=== PATIENT | female | born 1990 | race Caucasian/White ===

== ENCOUNTER 2016-06-30 21:04 | Emergency (ER) | payer OTHER ==
[~2016-06-30] VITALS: Ht 152.4 cm; Wt 89.8 kg
[~2016-06-30 21:04] MED LIST: CIPR500T4 PO; FLAG500T PO; LORTA5 PO
[2016-06-30 21:29] VITALS: BP 128/86; PULSE 95; RESP 16; TEMP 98.8; O2SAT 97
[2016-07-01 02:10] VITALS: BP 128/86; PULSE 95; RESP 20; TEMP 98.8; O2SAT 97
[2016-07-01] MEDS ORDERED: LEVS0.124 SL (02:10)
[2016-07-01] MEDS ORDERED: SODIUM CHLOR 0.9% 1000 ML INJ 1,000 ML IV SCH (02:11)
--- NOTE | 2016-07-01 02:11 | PD ---
HPI Chief Complaint: Abdominal Pain Time Seen by Provider: 02:06 Travel History International Travel<30 days: No Contact w/Intl Traveler<30days: No Traveled to known affect area: No History of Present Illness HPI The patient is a 25-year-old female with a history of diverticulitis who complains of the same symptoms, pain for the last 24 hours in the left lower quadrant. She denies any fever, vomiting or diarrhea but does have some slight nausea. Her pain as a 6/10. She purposely came in early because she wanted to get treatment for diverticulitis before it got as bad as it was in January. She has undergone lower endoscopy by Dr. Mendoza in March who found diverticula and put the patient on Levsin. PFS Past Medical History Endocrine: No Musculoskeletal: No Neurologic: No Psychiatric: No Past Surgical History Tonsillectomy: Yes Tympanostomy Tube: Yes Social History Alcohol Use: Yes (occ) Tobacco Use: No Substance Use: No Allergies-Medications (Allergen,Severity, Reaction): Coded Allergies: Nut Tree (Verified Allergy, Severe, Anaphylaxis, 07/01/16) Reported Meds & Prescriptions Reported Meds & Active Scripts Active Reported Levsin-SL (Hyoscyamine Sulfate) 0.125 Mg Subl 0.125 Mg SL Q6H Review of Systems Except as stated in HPI: all other systems reviewed are Neg Physical Exam Narrative GENERAL: The patient is alert, oriented 3 and slight apparent distress with her abdominal discomfort. Her vital signs are normal. SKIN: Warm and dry. HEAD: Atraumatic. Normocephalic. EYES: Pupils equal and round. No scleral icterus. No injection or drainage. ENT: No nasal bleeding or discharge. Mucous membranes pink and moist. NECK: Trachea midline. No JVD. CARDIOVASCULAR: Regular rate and rhythm. No murmur appreciated. RESPIRATORY: No accessory muscle use. Clear to auscultation. Breath sounds equal bilaterally. GASTROINTESTINAL: Abdomen soft, with tenderness to direct palpation in the left lower quadrant, nondistended. Hepatic and splenic margins not palpable. No guarding or rebound is present. MUSCULOSKELETAL: No obvious deformities. No clubbing. No cyanosis. No edema. NEUROLOGICAL: Awake and alert. No obvious cranial nerve deficits. Motor grossly within normal limits. Normal speech. PSYCHIATRIC: Appropriate mood and affect; insight and judgment normal. Data Data Last Documented VS Vital Signs Date Time Temp Pulse Resp B/P Pulse Ox O2 Delivery O2 Flow Rate FiO2 07/01/16 02:22 98.8 95 20 128/86 97 Room Air Orders Basic Metabolic Panel (Bmp) (07/01/16 02:11) Beta Hcg (Quant/Titer) (07/01/16 02:11) Complete Blood Count With Diff (07/01/16 02:11) Urinalysis - C+S If Indicated (07/01/16 02:11) Iv Access Insert/Monitor (07/01/16 02:11) Ecg Monitoring (07/01/16 02:11) Oximetry (07/01/16 02:11) Morphine Inj (Morphine Inj) (07/01/16 02:15) Ondansetron Inj (Zofran Inj) (07/01/16 02:15) Sodium Chlor 0.9% 1000 Ml Inj (Ns 1000 M (07/01/16 02:11) Sodium Chloride 0.9% Flush (Ns Flush) (07/01/16 02:15) Metronidazole 500 Mg Inj (Flagyl 500 Mg (07/01/16 02:15) Levofloxacin 750 Mg Premix Inj (Levaquin (07/01/16 02:15) Urine Culture (07/01/16 02:30) Labs Laboratory Tests Test 07/01/16 07/01/16 02:15 02:30 White Blood Count 12.2 TH/MM3 Red Blood Count 4.96 MIL/MM3 Hemoglobin 14.5 GM/DL Hematocrit 43.5 % Mean Corpuscular Volume 87.6 FL Mean Corpuscular Hemoglobin 29.2 PG Mean Corpuscular Hemoglobin 33.3 % Concent Red Cell Distribution Width 12.9 % Platelet Count 298 TH/MM3 Mean Platelet Volume 9.2 FL Neutrophils (%) (Auto) 61.2 % Lymphocytes (%) (Auto) 28.4 % Monocytes (%) (Auto) 4.8 % Eosinophils (%) (Auto) 4.9 % Basophils (%) (Auto) 0.7 % Neutrophils # (Auto) 7.4 TH/MM3 Lymphocytes # (Auto) 3.5 TH/MM3 Monocytes # (Auto) 0.6 TH/MM3 Eosinophils # (Auto) 0.6 TH/MM3 Basophils # (Auto) 0.1 TH/MM3 CBC Comment DIFF FINAL Differential Comment Sodium Level 141 MEQ/L Potassium Level 3.8 MEQ/L Chloride Level 104 MEQ/L Carbon Dioxide Level 26.4 MEQ/L Anion Gap 11 MEQ/L Blood Urea Nitrogen 12 MG/DL Creatinine 0.87 MG/DL Estimat Glomerular Filtration 80 ML/MIN Rate Random Glucose 87 MG/DL Calcium Level 8.8 MG/DL Human Chorionic Gonadotropin, LESS THAN 1 Quant MIU/ML Urine Collection Type VOIDED Urine Color YELLOW Urine Turbidity CLEAR Urine pH 5.5 Urine Specific [place] 1.022 Urine Protein NEG mg/dL Urine Glucose (UA) NEG mg/dL Urine Ketones NEG mg/dL Urine Occult Blood NEG Urine Nitrite NEG Urine Bilirubin NEG Urine Leukocyte Esterase TRACE Urine WBC 9-14 /hpf Urine Squamous Epithelial 6-8 /hpf Cells Urine Bacteria RARE /hpf Microscopic Urinalysis Comment CULTURE INDICATED MDM Medical Decision Making Medical Screen Exam Complete: Yes Emergency Medical Condition: Yes Medical Record Reviewed: Yes Interpretation(s) The CBC shows a white count of 12,200 but is otherwise unremarkable. The basic metabolic profile shows a GFR of 80 but is otherwise normal. The beta-hCG is less than 1. The urinalysis shows trace leukocyte esterase, 9-14 white cells and rare bacteria and culture is indicated. Differential Diagnosis Acute diverticulitis, perforation of diverticulitis, intra-abdominal abscess, PIDunlikely, UTI Narrative Course The patient appears to have acute diverticulitis and a urinary tract infection. Plan: The patient will be given Cipro and Flagyl and follow up with her primary care physician. If worse, she is return to emergency department for reevaluation and possible CT scan. Diagnosis Primary Impression: Acute diverticulitis Additional Impression: Urinary tract infection Additional Instructions: As we discussed, do not drink alcohol with the Flagyl. Do not drink alcohol or drive on the Lortab 5. If worse, intubated due to return to the emergency department for reevaluation and CAT scan. As we discussed, perforation can occur with diverticulitis. Follow-up with Dr. Mendoza next week. Med/Other Pt SpecificInfo: Prescription(s) given Scripts Metronidazole (Flagyl)500 Mg [id number] Mg PO TID 10 Days Ref 0 Prov:Roni Shepard MD 07/01/16 Ciprofloxacin (Cipro)500 Mg [id number] Mg PO BID 10 Days Ref 0 Prov:Roni Shepard MD 07/01/16 Disposition: 01 DISCHARGE HOME Condition: Stable Roni Shepard MD Jul 01, 2016 02:11
[2016-07-01] MEDS ORDERED: SODIUM CHLORIDE 0.9% FLUSH 5 ML FLUSH IVF PRN (02:15)
[2016-07-01] MEDS ORDERED: MORPHINE SULFATE 4 MG/ML INJ IV PUSH ONE (02:15)
[2016-07-01] MEDS ORDERED: ONDANSETRON HCL 4 MG/2 ML VIAL IVP ONE (02:15)
[2016-07-01] MEDS ORDERED: metroNIDAZOLE 500 MG INJ 100 ML IV ONE (02:15)
[2016-07-01] MEDS ORDERED: LEVOFLOXACIN 750 MG PREMIX INJ 150 ML IV ONE (02:15)
[2016-07-01 02:22] VITALS: BP 128/86; PULSE 95; RESP 20; TEMP 98.8; O2SAT 97
[2016-07-01 02:56] LABS: BLOOD, URINE NEG (NEG); GLUCOSE,URINE NEG (NEG); KETONE, URINE NEG (NEG); NITRITE,URINE NEG (NEG); PH, URINE 5.5 (5.0-8.5)
[2016-07-01 02:59] LABS: AUTOMATED NEUTROPHIL # 7.4 TH/MM3 (1.8-7.7); BASOPHIL # 0.1 TH/MM3 (0-0.2); BASOPHIL % 0.7 % (0.0-2.0); EOSINOPHIL # 0.6 TH/MM3 (0-0.4); EOSINOPHIL % 4.9 % (0.0-4.0); HEMATOCRIT 43.5 % (35.0-46.0); HEMO FLAGS DIFF FINAL; LYMPH % 28.4 % (9.0-44.0); LYMPHOCYTE # 3.5 TH/MM3 (1.0-4.8); MEAN CELL VOLUME 87.6 FL (80.0-100.0); MEAN CORPUSCULAR HEMOGLOBIN 29.2 PG (27.0-34.0); MEAN CORPUSCULAR HGB CONC 33.3 % (32.0-36.0); MONO % 4.8 % (0.0-8.0); NEUT % 61.2 % (16.0-70.0); PLATELET COUNT 298 TH/MM3 (150-450); RED BLOOD COUNT 4.96 MIL/MM3 (4.00-5.30); RED CELL DISTRIBUTION WIDTH 12.9 % (11.6-17.2); WHITE BLOOD COUNT 12.2 TH/MM3 (4.0-11.0)
[2016-07-01 03:03] LABS: CHLORIDE 104 MEQ/L (98-107); POTASSIUM 3.8 MEQ/L (3.5-5.1); SODIUM (NA) 141 MEQ/L (136-145)
[2016-07-01 03:06] LABS: ANION GAP 11 MEQ/L (5-15); BICARBONATE 26.4 MEQ/L (21.0-32.0); BLOOD UREA NITROGEN 12 MG/DL (7-18)
[2016-07-01 03:09] LABS: METHOD OF COLLECTION VOIDED; URINE COLOR YELLOW (YELLW/STRAW)
[2016-07-01 03:10] LABS: GLOMERULAR FILTRATION RATE 80 ML/MIN (>89)
[2016-07-01 03:12] LABS: BACTERIA, URINE RARE /hpf; COMMENT (UR) CULTURE INDICATED; CULTURE IF INDICATED CULTURE INDICATED
[2016-07-01 03:14] LABS: BETA HCG QUANT LESS THAN 1 MIU/ML (0-5)
[2016-07-01] MEDS ORDERED: METR-1 PO (03:39)
[2016-07-01] MEDS ORDERED: CIPR-9 PO (03:39)
[2016-07-01] MEDS ORDERED: HYDR-3533 PO (03:42)
[2016-07-01] MEDS ORDERED: ZOFR8TAB PO (03:45)
[2016-07-01] MEDS ORDERED: ONDANSETRON HCL 4 MG/2 ML VIAL IV ONE (03:45)
[2016-07-01 04:30] VITALS: BP 112/56; TEMP 98.7
== END 2016-07-01 04:38 | disposition home or self-care (01) ==
LOC: PHED 21:04
DX: K57.92 Diverticulitis of intestine, part unspecified, without perforation or abscess without bleeding (principal); N39.0 Urinary tract infection, site not specified
CPT/HCPCS: 80048; 81001; 84702; 85025; 87086; 96365; 96368; 96375; 96376; 99284; J1956; J2270; J2405; J7030

== ENCOUNTER 2016-09-16 20:25 | Emergency (ER) | payer OTHER ==
[~2016-09-16] VITALS: Ht 165.1 cm; Wt 90.0 kg
[~2016-09-16 20:25] MED LIST changes: +CIPR-9 PO; -CIPR500T4 PO; -FLAG500T PO; +HYDR-3533 PO; +LEVS0.124 SL; -LORTA5 PO; +METR-1 PO; +ZOFR8TAB PO
[2016-09-16 20:27] VITALS: BP 134/88; PULSE 115; RESP 16; TEMP 98.6; O2SAT 98
--- NOTE | 2016-09-16 21:09 | PD ---
HPI Chief Complaint: Injury Time Seen by Provider: 21:02 Travel History International Travel<30 days: No Contact w/Intl Traveler<30days: No Traveled to known affect area: No History of Present Illness HPI 26-year-old white female presents to emergency Department with complaints of left foot pain. She states that prior to arrival she had dropped a 10 pound metal plate onto her right foot. The patient was wearing sneakers at the time. She states that the weight landed and weighs down onto her great toe. She states that she has had decreased sensation. Pain is moderate. No other injuries. She has not had a period in 4 months. She did a home pricey test yesterday which was negative. She has a history of irregular periods and possible PCOS. PFSH Past Medical History Diminished Hearing: No Endocrine: No Gastrointestinal Disorders: Yes (divirticulitis) Musculoskeletal: No Neurologic: No Psychiatric: No Tetanus Vaccination: < 5 Years ?: Not LMP: IRRGULAR CYCLES Past Surgical History Narrative Surgical Left tympanoplasty Tonsillectomy: Yes Tympanostomy Tube: Yes Social History Alcohol Use: Yes (occ) Tobacco Use: No Substance Use: No Allergies-Medications (Allergen,Severity, Reaction): Coded Allergies: Nut Tree (Verified Allergy, Severe, Anaphylaxis, 07/01/16) Reported Meds & Prescriptions Reported Meds & Active Scripts Active Diclofenac Sodium DR (Diclofenac Sodium) 75 Mg Tabdr 75 Mg PO BID Zofran (Ondansetron HCl) 8 Mg Tab 8 Mg PO TID Lortab (Hydrocodone-Acetaminophen) 5-325 Mg Tab 1-2 Tab PO Q6H PRN Flagyl (Metronidazole) 500 Mg Tab 500 Mg PO TID 10 Days Cipro (Ciprofloxacin HCl) 500 Mg Tab 500 Mg PO BID 10 Days Reported Levsin-SL (Hyoscyamine Sulfate) 0.125 Mg Subl 0.125 Mg SL Q6H Review of Systems Except as stated in HPI: all other systems reviewed are Neg Physical Exam Narrative GENERAL: This is a well-nourished, well-developed patient, in no apparent distress. SKIN: No rashes, ecchymoses or lesions. Warm and dry. HEAD: Atraumatic. Normocephalic. EYES: PERRL, EOMI, no discharge or injection. No scleral icterus. EARS: Clear NOSE: Nasal turbinates appear normal. THROAT: Mucosa pink and moist. Airway patent. NECK: Trachea midline. supple, moves head freely. LUNGS: Clear to auscultation. CV: Regular in rhythm. ABDOMEN: Soft nontender. EXT: No clubbing cyanosis. Examination of the left foot reveals tenderness to the distal first metatarsal and proximal great toe. There is a soft tissue contusion with hematoma. There is slight skin breakdown but no laceration. Patient has decrease fine sensation but has intact gross sensation. Patient has limited extension of the great toe due to pain. There is no injury to the second, third, fourth, fifth toe. No pain in the proximal forefoot, heel, Achilles or ankle. She has a good distal pulse. Data Data Last Documented VS Vital Signs Date Time Temp Pulse Resp B/P Pulse Ox O2 Delivery O2 Flow Rate FiO2 09/16/16 20:27 98.6 115 16 134/88 98 Orders Foot, Complete ([id number]) (09/16/16 20:28) Ed Urine Pregnancytest Poc (09/16/16 21:09) Ice/Cold Pack (09/16/16 21:09) Crutches (09/16/16 21:09) Acetamin-Hydrocod 325-5 Mg ([place] 5-325 (09/16/16 21:15) MDM Medical Decision Making Medical Screen Exam Complete: Yes Emergency Medical Condition: Yes Medical Record Reviewed: Yes Interpretation(s) Left foot: Negative for fracture. There is a slight irregularity of the distal phalanx of the great toe. This is not a fracture. There is no associated clinical findings. Differential Diagnosis MDM: High Differential diagnoses: Fracture, sprain, strain, dislocation, contusion, neurovascular injury Narrative Course Patient's given ice pack, Lortab 5 a grams by mouth. X-ray of the right foot is negative for acute fracture. Patient given crutches. Diagnosis Primary Impression: Contusion of left foot including toes Qualified Code: S90.32XA - Contusion of left foot including toes, initial encounter Patient Instructions: General Instructions Departure Forms: Tests/Procedures, Work Release Special Instructions: No work 2 days. Additional Instructions: Rest. Elevation. Ice packs for the next 3 days. Asad wrap and crutches. No weight-bearing and then progress to weight-bearing as tolerated. Medications as directed Follow-up with an orthopedist or your doctor in one week. Return to the ER if any problems Med/Other Pt SpecificInfo: Prescription(s) given Scripts Diclofenac Sodium DR 75 Mg Tabdr75 Mg PO BID #20 TAB Prov:Rafi Hoffman MD 09/16/16 Disposition: 01 DISCHARGE HOME Condition: Stable Abdiel Acuña Sep 16, 2016 21:09
[2016-09-16] MEDS ORDERED: ACETAMINOPHEN/HYDROcodone 325 MG/5 MG TAB PO ONE (21:15)
--- NOTE | 2016-09-16 21:31 | RADRPT ---
EXAM DATE/TIME: 09/16/2016 21:25 [facility] COMPARISON: No previous studies available for comparison. INDICATIONS : Left foot pain and swelling after dropping a 10 pound weight on her big toe tonight. MEDICAL HISTORY : None. SURGICAL HISTORY : None. ENCOUNTER: Initial ACUITY: 1 day PAIN SCORE: 6/10 LOCATION: Right great toe. FINDINGS: Three view examination of the left foot demonstrates soft tissue swelling with questionable nondispla jackeline fracture distal phalanx great density on lateral view. The tarsal bones appear intact. The int erphalangeal and metatarsophalangeal joints are intact. The calcaneus is intact. Bony mineralizatio n is normal. CONCLUSION: Soft tissue swelling and questionable nondisplaced fracture distal phalanx great. Lloyd Cruz MD on September 16, 2016 at 21:28 Board Certified Radiologist. This report was verified electronically.
[2016-09-16] MEDS ORDERED: DICL75TA PO (21:33)
== END 2016-09-16 22:10 | disposition home or self-care (01) ==
LOC: NEPK 20:25
DX: S90.32XA Contusion of left foot, initial encounter (principal); Z87.19 Personal history of other diseases of the digestive system; W20.8XXA Other cause of strike by thrown, projected or falling object, initial encounter
CPT/HCPCS: 73630; 99283; E0113

== ENCOUNTER 2017-01-21 20:18 | Emergency (ER) | payer OTHER ==
[~2017-01-21] VITALS: Ht 152.4 cm; Wt 90.5 kg
[~2017-01-21 20:18] MED LIST changes: +DICL75TA PO
[2017-01-21 20:20] VITALS: BP 143/90; PULSE 126; RESP 18; TEMP 98.7; O2SAT 99
[2017-01-21] MEDS ORDERED: EPINEPHrine HCL (1:1000) 1 MG/ML VIAL IM ONE (20:30)
[2017-01-21] MEDS ORDERED: methylPREDNISolone SOD SUCC 125 MG/2 ML VIAL IV PUSH ONE (20:30)
[2017-01-21] MEDS ORDERED: diphenhydrAMINE HCL 50 MG/ML VIAL IVP ONE (20:30)
--- NOTE | 2017-01-21 21:02 | PD ---
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 States she did not realized it had cashew in it and her epipen was in recall so did not use it. Had an episode of vomiting prior to arrival. Denies any fever, chest pain, sob , abdominal pain, focal weakness or numbness. Pt states she just found out she was and LMP was 12/15/16, she is [id number] by LMP. PFSH Past Medical History Diminished Hearing: No Endocrine: No Gastrointestinal Disorders: Yes (divirticulitis) Musculoskeletal: No Neurologic: No Psychiatric: No Past Surgical History Tonsillectomy: Yes Tympanostomy Tube: Yes Social History Alcohol Use: Yes (occ) Tobacco Use: No Substance Use: No Allergies-Medications (Allergen,Severity, Reaction): Coded Allergies: tree nut (Unverified Allergy, Severe, Anaphylaxis, 01/21/17) Reported Meds & Prescriptions Reported Meds & Active Scripts Active Diclofenac Sodium DR (Diclofenac Sodium) 75 Mg Tabdr 75 Mg PO BID Zofran (Ondansetron HCl) 8 Mg Tab 8 Mg PO TID Lortab (Hydrocodone-Acetaminophen) 5-325 Mg Tab 1-2 Tab PO Q6H PRN Flagyl (Metronidazole) 500 Mg Tab 500 Mg PO TID 10 Days Cipro (Ciprofloxacin HCl) 500 Mg Tab 500 Mg PO BID 10 Days Reported Levsin-SL (Hyoscyamine Sulfate) 0.125 Mg Subl 0.125 Mg SL Q6H Review of Systems Except as stated in HPI: all other systems reviewed are Neg Physical Exam Narrative GENERAL: 26yo F in moderate distress. SKIN: Focused skin assessment warm/dry. HEAD: Atraumatic. Normocephalic. EYES: Pupils equal and round. No scleral icterus. No injection or drainage. ENT: Uvula midline. No uvula swelling. No lip swelling. NECK: Trachea midline. No JVD. CARDIOVASCULAR: Regular rate and rhythm. No murmur appreciated. RESPIRATORY: No accessory muscle use. Clear to auscultation. Breath sounds equal bilaterally. GASTROINTESTINAL: Abdomen soft, non-tender, nondistended. No rebound tenderness or guarding. MUSCULOSKELETAL: No obvious deformities. No clubbing. No cyanosis. No edema. NEUROLOGICAL: Awake and alert. No obvious cranial nerve deficits. Motor grossly within normal limits. Normal speech. PSYCHIATRIC: Appropriate mood and affect; insight and judgment normal. Data Data Last Documented VS Vital Signs Date Time Temp Pulse Resp B/P (MAP) Pulse Ox O2 Delivery O2 Flow Rate FiO2 01/21/17 23:28 105 14 110/66 (81) 99 Room Air 01/21/17 20:20 98.7 Orders Orders Ecg Monitoring (01/21/17 20:30) Iv Access Insert/Monitor (01/21/17 20:30) Oximetry (01/21/17 20:30) Diphenhydramine Inj (Benadryl Inj) (01/21/17 20:30) Methylprednisolone So Succ Inj (Solumedr (01/21/17 20:30) Epinephrine (1:1000) Inj (Adrenalin (1:1 (01/21/17 20:30) Sodium Chlor 0.9% 1000 Ml Inj (Ns 1000 M (01/21/17 21:15) Ed Urine Pregnancytest Poc (01/21/17 21:19) Urinalysis - C+S If Indicated (01/21/17 21:19) Labs Laboratory Tests Test 01/21/17 21:26 Urine Color COLORLESS Urine Turbidity CLEAR Urine pH 6.5 Urine Specific [place] 1.005 Urine Protein NEG mg/dL Urine Glucose (UA) NEG mg/dL Urine Ketones NEG mg/dL Urine Occult Blood NEG Urine Nitrite NEG Urine Bilirubin NEG Urine Urobilinogen LESS THAN 2.0 MG/DL Urine Leukocyte Esterase NEG Urine RBC LESS THAN 1 /hpf Urine WBC LESS THAN 1 /hpf Urine Squamous Epithelial Cells 1 /hpf Urine Bacteria RARE /hpf Microscopic Urinalysis Comment CULT NOT INDICATED MDM Medical Decision Making Medical Screen Exam Complete: Yes Emergency Medical Condition: Yes Differential Diagnosis Anaphylaxis vs. 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 I discussed risk and benefit of epinephrine which is a category C medication and decided to take it. Pt also given diphenhydramine 50mg IV. We will hold off on the methylprednisolone for now. Pt has been observed in the ED for over 3 hours and states symptoms had completely resolved. Denies any sob. Lungs are clear. Lip and throat not swollen. UA showed rare bacteria. Although culture is not indicated, pt is and if there is bacteruria, will still treat. Return precautions given. Diagnosis Primary Impression: Anaphylaxis Qualified Codes: T78.2XXA - Anaphylactic shock, unspecified, initial encounter Patient Instructions: General Instructions Departure Forms: Tests/Procedures Additional Instructions: Please follow up with your primary care physician in 1-2 days. Please follow up with OBGYN as outpatient. Med/Other Pt SpecificInfo: Prescription(s) given Scripts Nitrofurantoin Monohydrate Macrocrystals (Macrobid) 100 Mg Cap 100 MG PO BID for Infection for 5 Days, #10 CAP 0 Refills Prov: Debi Magaña DO 01/21/17 Diphenhydramine (Diphenhydramine) 25 Mg Cap 25 MG PO Q6H Y for ALLERGIES for 3 Days, #12 CAP 0 Refills Prov: Debi Magaña DO 01/21/17 Epinephrine Inj (Epipen 2-Wiliam Inj) 0.3 Mg/0.3 Ml Pfpen 0.3 MG SQ ONCE Y for ALLERGIC REACTION, #1 PACK 0 Refills Prov: Debi Magaña DO 01/21/17 Disposition: 01 DISCHARGE HOME Condition: Stable Debi Magaña DO Jan 21, 2017 21:02
[2017-01-21 21:14] VITALS: BP 117/65; PULSE 106; RESP 16; O2SAT 98
[2017-01-21] MEDS ORDERED: SODIUM CHLOR 0.9% 1000 ML INJ 1,000 ML IV ONE (21:15)
[2017-01-21 21:53] LABS: BACTERIA, URINE RARE /hpf; BLOOD, URINE NEG (NEG); COMMENT (UR) CULT NOT INDICATED; CULTURE IF INDICATED CULT NOT INDICATED; GLUCOSE,URINE NEG (NEG); KETONE, URINE NEG (NEG); NITRITE,URINE NEG (NEG); PH, URINE 6.5 (5.0-8.5); SQUAMOUS EPITHELIAL CELL URINE 1 /hpf (0-5); URINE COLOR COLORLESS (YELLW/STRAW)
[2017-01-21 23:28] VITALS: BP 110/66; PULSE 105; RESP 14; O2SAT 99
[2017-01-21] MEDS ORDERED: MACR100C2 PO (23:41)
[2017-01-21] MEDS ORDERED: EPIP0.3I SQ (23:41)
[2017-01-21] MEDS ORDERED: DIPH25CA PO (23:41)
== END 2017-01-21 23:53 | disposition home or self-care (01) ==
LOC: NEPC 20:18
DX: T78.2XXA Anaphylactic shock, unspecified, initial encounter (principal)
CPT/HCPCS: 81001; 84703; 96361; 96372; 96374; 99284; J0171; J1200; J7030

== ENCOUNTER 2017-02-24 18:16 | Emergency (ER) | payer OTHER ==
[~2017-02-24 18:16] MED LIST changes: +DIPH25CA PO; +EPIP0.3I SQ; +MACR100C2 PO
[2017-02-24 18:17] VITALS: BP 138/91; PULSE 101; RESP 14; TEMP 98.1; O2SAT 99
[2017-02-24 20:57] LABS: AUTOMATED NEUTROPHIL # 10.3 TH/MM3 (1.8-7.7); BASOPHIL % 0.4 % (0.0-2.0); BLOOD, URINE NEG (NEG); EOSINOPHIL # 0.2 TH/MM3 (0-0.4); EOSINOPHIL % 1.4 % (0.0-4.0); GLUCOSE,URINE NEG (NEG); HEMATOCRIT 39.6 % (35.0-46.0); HEMO FLAGS DIFF FINAL; KETONE, URINE 10 mg/dL (NEG); LYMPH % 18.4 % (9.0-44.0); LYMPHOCYTE # 2.5 TH/MM3 (1.0-4.8); MEAN CELL VOLUME 87.9 FL (80.0-100.0); MEAN CORPUSCULAR HEMOGLOBIN 29.9 PG (27.0-34.0); MONO % 4.7 % (0.0-8.0); NEUT % 75.1 % (16.0-70.0); NITRITE,URINE NEG (NEG); PLATELET COUNT 244 TH/MM3 (150-450); SQUAMOUS EPITHELIAL CELL URINE <1 /hpf (0-5); URINE COLOR LIGHT-YELLOW (YELLW/STRAW); WHITE BLOOD COUNT 13.7 TH/MM3 (4.0-11.0)
[2017-02-24 20:59] LABS: COMMENT (UR) CULT NOT INDICATED; CULTURE IF INDICATED CULT NOT INDICATED
[2017-02-24 21:09] LABS: BICARBONATE 24.3 MEQ/L (21.0-32.0); POTASSIUM 3.8 MEQ/L (3.5-5.1)
--- NOTE | 2017-02-24 22:26 | PD ---
HPI Chief Complaint: Dizziness Time Seen by Provider: 22:24 Travel History International Travel<30 days: No Contact w/Intl Traveler<30days: No Traveled to known affect area: No History of Present Illness HPI The patient is a 26 year old female who presents to the [facility] emergency department with a history of a bitemporal headache, nausea, lightheaded sensation that began while she was at work at the [employer] earlier today. The patient is a at 10 weeks gestation. She denies having any vomiting. She reports that she had a few weeks of nausea and vomiting related to , however this resolved about a week ago. She denies having any diarrhea. She reports that she last moved her bowels last night. She denies having any blood in her stool or black or tarry stools. She reports that she had a sensation of subjective fever prior to arrival. On review of systems, otherwise she denies having any cough, congestion, neck pain, chest pain, shortness of breath, abdominal pain, urinary symptoms, vaginal bleeding, vaginal discharge, or neurologic symptoms. LMP: 12/16/16, OBGYN Dr. Scanlon. [facility] Past Medical History Narrative Medical The patient's past medical history is significant for PCOS, Diverticulitis. Diminished Hearing: No Endocrine: No Gastrointestinal Disorders: Yes (divirticulitis) Musculoskeletal: No Neurologic: No Psychiatric: No ?: Past Surgical History Narrative Surgical The patient's past surgical history is significant for mastoid-tympanoplasty, tonsillectomy. Tonsillectomy: Yes Tympanostomy Tube: Yes Other Surgery: Yes Social History Alcohol Use: No Tobacco Use: No Substance Use: No Allergies-Medications (Allergen,Severity, Reaction): Coded Allergies: tree nut (Unverified Allergy, Severe, Anaphylaxis, 01/21/17) Reported Meds & Prescriptions Reported Meds & Active Scripts Active Macrobid (Nitrofurantoin Monoh/Nitrofur Macro) 100 Mg Cap 100 Mg PO BID 5 Days Diphenhydramine (Diphenhydramine HCl) 25 Mg Cap 25 Mg PO Q6H PRN 3 Days Epipen 2-Wiliam Inj (Epinephrine) 0.3 Mg/0.3 Ml Pfpen 0.3 Mg SQ ONCE PRN Diclofenac Sodium DR (Diclofenac Sodium) 75 Mg Tabdr 75 Mg PO BID Zofran (Ondansetron HCl) 8 Mg Tab 8 Mg PO TID Lortab (Hydrocodone-Acetaminophen) 5-325 Mg Tab 1-2 Tab PO Q6H PRN Flagyl (Metronidazole) 500 Mg Tab 500 Mg PO TID 10 Days Cipro (Ciprofloxacin HCl) 500 Mg Tab 500 Mg PO BID 10 Days Reported Levsin-SL (Hyoscyamine Sulfate) 0.125 Mg Subl 0.125 Mg SL Q6H Vitamen Review of Systems Except as stated in HPI: all other systems reviewed are Neg General / Constitutional: Positive: Fever Eyes: No: Visual changes HENT: Positive: Headaches, Lightheadedness, No: Neck Stiffness, Neck Pain Cardiovascular: No: Chest Pain or Discomfort Respiratory: No: Shortness of Breath Gastrointestinal: Positive: Nausea, No: Abdominal Pain Genitourinary: No: Dysuria Musculoskeletal: No: Pain Skin: No Rash Neurologic: Positive: Dizziness, No: Weakness, Focal Abnormalities, Change in Mentation, Slurred Speech, Sensory Disturbance Psychiatric: No: Depression Endocrine: No: Polydipsia Hematologic/Lymphatic: No: Easy Bruising Physical Exam Narrative General: The patient is a well-developed well-nourished female in no acute distress. Head and Neck exam: Head is normocephalic atraumatic. Eyes: EOMI, pupils are equal round and reactive to light. Nose: Midline septum with pink mucous membranes Mouth: Dentition unremarkable. Moist mucus membranes. Posterior oropharynx is not erythematous. No tonsillar hypertrophy. Uvula midline. Airway patent. Neck: No palpable lymphadenopathy. No nuchal rigidity. No thyromegaly. Cardiovascular: Regular rate and rhythm without murmurs, gallops, or rubs. Lungs: Clear to auscultation bilaterally. No wheezes, rhonchi, or rales. Abdomen: Soft, without tenderness to palpation in all 4 quadrants of the abdomen. No guarding, rebound, or rigidity. Normal bowel sounds are audible. No tenderness on palpation of McBurney's point. Extremities: No clubbing, cyanosis, or edema. 2+ pulses in all 4 extremities. No calf tenderness on palpation. Back: No spinous process tenderness to palpation. No costovertebral angle tenderness to palpation. Neurologic Exam: Grossly nonfocal. Skin Exam: No rash noted. Intact skin that is warm and dry. Data Data Last Documented VS Vital Signs Date Time Temp Pulse Resp B/P (MAP) Pulse Ox O2 Delivery O2 Flow Rate FiO2 02/25/17 00:15 84 19 107/59 (75) 100 19 123/74 (90) 96 20 116/69 (85) 02/24/17 18:17 98.1 99 Orders Orders Complete Blood Count With Diff (02/24/17 18:37) Basic Metabolic Panel (Bmp) (02/24/17 18:37) Beta Hcg (Quant/Titer) (02/24/17 18:37) Urinalysis - C+S If Indicated (02/24/17 18:37) Sodium Chlor 0.9% 1000 Ml Inj (Ns 1000 M (02/24/17 22:30) Orthostatic Vital Signs (02/24/17 22:29) Acetaminophen (Tylenol) (02/24/17 22:45) Labs Laboratory Tests Test 02/24/17 20:30 White Blood Count 13.7 TH/MM3 Red Blood Count 4.50 MIL/MM3 Hemoglobin 13.5 GM/DL Hematocrit 39.6 % Mean Corpuscular Volume 87.9 FL Mean Corpuscular Hemoglobin 29.9 PG Mean Corpuscular Hemoglobin Concent 34.0 % Red Cell Distribution Width 13.0 % Platelet Count 244 TH/MM3 Mean Platelet Volume 8.3 FL Neutrophils (%) (Auto) 75.1 % Lymphocytes (%) (Auto) 18.4 % Monocytes (%) (Auto) 4.7 % Eosinophils (%) (Auto) 1.4 % Basophils (%) (Auto) 0.4 % Neutrophils # (Auto) 10.3 TH/MM3 Lymphocytes # (Auto) 2.5 TH/MM3 Monocytes # (Auto) 0.6 TH/MM3 Eosinophils # (Auto) 0.2 TH/MM3 Basophils # (Auto) 0.0 TH/MM3 CBC Comment DIFF FINAL Differential Comment Urine Color LIGHT-YELLOW Urine Turbidity CLEAR Urine pH 6.0 Urine Specific [place] 1.007 Urine Protein NEG mg/dL Urine Glucose (UA) NEG mg/dL Urine Ketones 10 mg/dL Urine Occult Blood NEG Urine Nitrite NEG Urine Bilirubin NEG Urine Urobilinogen LESS THAN 2.0 MG/DL Urine Leukocyte Esterase NEG Urine RBC 1 /hpf Urine WBC LESS THAN 1 /hpf Urine Squamous Epithelial Cells <1 /hpf Microscopic Urinalysis Comment CULT NOT INDICATED Blood Urea Nitrogen 8 MG/DL Creatinine 0.67 MG/DL Random Glucose 78 MG/DL Calcium Level 9.0 MG/DL Sodium Level 136 MEQ/L Potassium Level 3.8 MEQ/L Chloride Level 103 MEQ/L Carbon Dioxide Level 24.3 MEQ/L Anion Gap 9 MEQ/L Estimat Glomerular Filtration Rate 107 ML/MIN Human Chorionic Gonadotropin, Quant 10178 MIU/ML MDM Medical Decision Making Medical Screen Exam Complete: Yes Emergency Medical Condition: Yes Medical Record Reviewed: Yes Differential Diagnosis Orthostasis, versus mild dehydration, versus viral syndrome Narrative Course During the course of the patients emergency department visit, the patients history, examination, and differential diagnosis were reviewed with the patient. The patient was placed on a deli department manager with oximetry and frequent blood pressure monitoring. The patient had IV access obtained and blood work sent for analysis. Orthostatic vital signs were negative. The patient was initially provided Tylenol for headache, normal saline 1 L IV fluid bolus. The patients laboratory studies were reviewed and remarkable for a white count of 13.7, hemoglobin 13.5, platelets 244 with 75.1 neutrophils, basic metabolic profile is within normal limits, beta hCG is 69,240, urinalysis shows 10 ketones suspicious for mild dehydration. The patient will be discharged home. The patient is instructed to take Tylenol as needed for discomfort aspirin on the package and increase her hydration by drinking at least 8 glasses of water daily, alternating with an electrolyte rich solution such as Gatorade or Powerade. The patient is resting comfortably and feels better, is alert and in no distress. The patients results and examination findings were discussed with the patient. The repeat examination is unremarkable and benign. The history, exam, diagnostic testing, and current condition do not suggest any significant pathology to warrant further testing, continued ED treatment, admission, or surgical evaluation at this point. The vital signs have been stable. The patient does not have uncontrollable pain, intractable vomiting, or other significant symptoms. The patient's condition is stable and appropriate for discharge. The patient will pursue further outpatient evaluation with a primary care physician or other designated or consulting physician as indicated in the discharge instructions. The patient expressed understanding and was agreeable with this plan. Diagnosis Primary Impression: Mild dehydration Referrals: Proofsheet Corrector 3 days Patient Instructions: Dehydration (ED), General Instructions Med/Other Pt SpecificInfo: No Change to Meds Disposition: 01 DISCHARGE HOME Condition: Stable Jaida Kauffman MD Feb 24, 2017 22:26
[2017-02-24] MEDS ORDERED: SODIUM CHLOR 0.9% 1000 ML INJ 1,000 ML IV ONE (22:30)
[2017-02-24] MEDS ORDERED: ACETAMINOPHEN 325 MG TAB PO ONE (22:45)
[2017-02-25 00:15] VITALS: BP_SYST 107; BP_SYST 116; BP_SYST 123; BP_DIAS 59; BP_DIAS 69; BP_DIAS 74; RESP 19; RESP 20
== END 2017-02-25 00:50 | disposition home or self-care (01) ==
LOC: NEPE 18:16
DX: O99.281 Endocrine, nutritional and metabolic diseases complicating pregnancy, first trimester (principal); E86.0 Dehydration; Z3A.10 10 weeks gestation of pregnancy
CPT/HCPCS: 80048; 81001; 84702; 85025; 99284; J7030

== ENCOUNTER 2017-03-11 12:25 | Emergency (ER) | payer OTHER ==
[~2017-03-11] VITALS: Ht 154.9 cm; Wt 93.6 kg
[2017-03-11 12:26] VITALS: BP 128/73; PULSE 124; RESP 20; TEMP 98.6; O2SAT 99
[2017-03-11 13:11] LABS: AUTOMATED NEUTROPHIL # 11.4 TH/MM3 (1.8-7.7); BASOPHIL # 0.1 TH/MM3 (0-0.2); BASOPHIL % 0.4 % (0.0-2.0); EOSINOPHIL # 0.1 TH/MM3 (0-0.4); EOSINOPHIL % 0.8 % (0.0-4.0); HEMATOCRIT 40.6 % (35.0-46.0); HEMO FLAGS DIFF FINAL; LYMPH % 5.1 % (9.0-44.0); LYMPHOCYTE # 0.6 TH/MM3 (1.0-4.8); MEAN CORPUSCULAR HEMOGLOBIN 30.2 PG (27.0-34.0); MEAN CORPUSCULAR HGB CONC 34.3 % (32.0-36.0); MONO % 4.2 % (0.0-8.0); NEUT % 89.5 % (16.0-70.0); PLATELET COUNT 230 TH/MM3 (150-450); RED BLOOD COUNT 4.61 MIL/MM3 (4.00-5.30); RED CELL DISTRIBUTION WIDTH 13.1 % (11.6-17.2); WHITE BLOOD COUNT 12.7 TH/MM3 (4.0-11.0)
[2017-03-11 13:20] LABS: ANION GAP 10 MEQ/L (5-15); AST (GOT) 21 U/L (15-37); BLOOD UREA NITROGEN 10 MG/DL (7-18); CHLORIDE 107 MEQ/L (98-107); GLOMERULAR FILTRATION RATE 111 ML/MIN (>89); POTASSIUM 3.8 MEQ/L (3.5-5.1); SODIUM (NA) 136 MEQ/L (136-145)
[2017-03-11 13:21] LABS: ALT (GPT) 38 U/L (10-53)
[2017-03-11 13:38] LABS: ALKALINE PHOSPHATASE 85 U/L (45-117); BETA HCG QUANT 35974 MIU/ML (0-5)
[2017-03-11] MEDS ORDERED: SE-NCHW CHEW (14:23)
--- NOTE | 2017-03-11 15:11 | PD ---
HPI Chief Complaint: GI Complaint Time Seen by Provider: 15:06 Travel History International Travel<30 days: No Contact w/Intl Traveler<30days: No Traveled to known affect area: No History of Present Illness HPI 26-year-old female patient who is 12 weeks , presents to the ER today because she has had a few days of nausea, vomiting, diarrhea multiple times a day, not able to keep anything down, it was said it by W[employer] LOOM FIXER for further evaluation. She denies any fevers or any other symptoms. She does not know any sick contacts. She denies any vaginal bleeding. Modifying Factors: None Associated Signs & Symptoms: Nausea, vomiting, diarrhea Risk Factors: PFSH Past Medical History Diminished Hearing: No Diverticulitis: Yes Endocrine: No Gastrointestinal Disorders: Yes Musculoskeletal: No Neurologic: No Psychiatric: No Tetanus Vaccination: > 5 Years Influenza Vaccination: Yes ?: LMP: 12/16/16 : 1 Past Surgical History Tonsillectomy: Yes Tympanostomy Tube: Yes Other Surgery: Yes Social History Alcohol Use: No Tobacco Use: No Substance Use: No Allergies-Medications (Allergen,Severity, Reaction): Coded Allergies: tree nut (Unverified Allergy, Severe, Anaphylaxis, 03/11/17) Reported Meds & Prescriptions Reported Meds & Active Scripts Active Epipen 2-Wiliam Inj (Epinephrine) 0.3 Mg/0.3 Ml Pfpen 0.3 Mg SQ ONCE PRN Reported Se- 19 29-1 mg Chew ( Vit W/ Ferrous Fumara Chew) 1 Chew 1 Tab CHEW DAILY Review of Systems Except as stated in HPI: all other systems reviewed are Neg Physical Exam Narrative GENERAL: Well-developed young female patient currently in mild distress. Awake and oriented 3. SKIN: Focused skin assessment warm/dry. HEAD: Atraumatic. Normocephalic. EYES: Pupils equal and round. No scleral icterus. No injection or drainage. ENT: No nasal bleeding or discharge. Mucous membranes pink and moist. NECK: Trachea midline. No JVD. CARDIOVASCULAR: Regular rate and rhythm. No murmur appreciated. RESPIRATORY: No accessory muscle use. Clear to auscultation. Breath sounds equal bilaterally. GASTROINTESTINAL: Abdomen soft, mild periumbilical tenderness without guarding or rebound, nondistended. Hepatic and splenic margins not palpable. MUSCULOSKELETAL: No obvious deformities. No clubbing. No cyanosis. No edema. NEUROLOGICAL: Awake and alert. No obvious cranial nerve deficits. Motor grossly within normal limits. Normal speech. PSYCHIATRIC: Appropriate mood and affect; insight and judgment normal. Data Data Last Documented VS Vital Signs Date Time Temp Pulse Resp B/P (MAP) Pulse Ox O2 Delivery O2 Flow Rate FiO2 03/11/17 14:25 20 03/11/17 12:26 98.6 124 128/73 (91) 99 Room Air Orders Orders Beta Hcg (Quant/Titer) (03/11/17 12:37) Complete Blood Count With Diff (03/11/17 12:37) Comprehensive Metabolic Panel (03/11/17 12:37) Lipase (03/11/17 12:37) Urinalysis - C+S If Indicated (03/11/17 12:37) Sodium Chlor 0.9% 1000 Ml Inj (Ns 1000 M (03/11/17 15:15) Metoclopramide Inj (Reglan Inj) (03/11/17 15:15) Us Pelvis (Ques Preg/Ectopic) (03/11/17 15:06) Labs Laboratory Tests Test 03/11/17 12:49 White Blood Count 12.7 TH/MM3 Red Blood Count 4.61 MIL/MM3 Hemoglobin 13.9 GM/DL Hematocrit 40.6 % Mean Corpuscular Volume 88.0 FL Mean Corpuscular Hemoglobin 30.2 PG Mean Corpuscular Hemoglobin Concent 34.3 % Red Cell Distribution Width 13.1 % Platelet Count 230 TH/MM3 Mean Platelet Volume 8.7 FL Neutrophils (%) (Auto) 89.5 % Lymphocytes (%) (Auto) 5.1 % Monocytes (%) (Auto) 4.2 % Eosinophils (%) (Auto) 0.8 % Basophils (%) (Auto) 0.4 % Neutrophils # (Auto) 11.4 TH/MM3 Lymphocytes # (Auto) 0.6 TH/MM3 Monocytes # (Auto) 0.5 TH/MM3 Eosinophils # (Auto) 0.1 TH/MM3 Basophils # (Auto) 0.1 TH/MM3 CBC Comment DIFF FINAL Differential Comment Blood Urea Nitrogen 10 MG/DL Creatinine 0.65 MG/DL Random Glucose 94 MG/DL Total Protein 7.8 GM/DL Albumin 3.7 GM/DL Calcium Level 8.9 MG/DL Alkaline Phosphatase 85 U/L Aspartate Amino Transf (AST/SGOT) 21 U/L Alanine Aminotransferase (ALT/SGPT) 38 U/L Total Bilirubin 1.0 MG/DL Sodium Level 136 MEQ/L Potassium Level 3.8 MEQ/L Chloride Level 107 MEQ/L Carbon Dioxide Level 19.0 MEQ/L Anion Gap 10 MEQ/L Estimat Glomerular Filtration Rate 111 ML/MIN Lipase 89 U/L Human Chorionic Gonadotropin, Quant 66863 MIU/ML MDM Medical Decision Making Medical Screen Exam Complete: Yes Emergency Medical Condition: Yes Medical Record Reviewed: Yes Interpretation(s) Laboratory Tests Test 03/11/17 12:49 White Blood Count 12.7 TH/MM3 (4.0-11.0) Neutrophils (%) (Auto) 89.5 % (16.0-70.0) Lymphocytes (%) (Auto) 5.1 % (9.0-44.0) Neutrophils # (Auto) 11.4 TH/MM3 (1.8-7.7) Lymphocytes # (Auto) 0.6 TH/MM3 (1.0-4.8) Carbon Dioxide Level 19.0 MEQ/L (21.0-32.0) Human Chorionic Gonadotropin, Quant 13391 MIU/ML (0-5) Last 24 hours Impressions Pelvis Ultrasound 03/11/17 1506 Signed Impressions: Service Date/Time: Saturday, March 11, 2017 15:31 - CONCLUSION: No suspicious findings Silvino Balbuena MD Differential Diagnosis Nausea, vomiting, diarrhea: Gastroenteritis versus gastritis versus dehydration versus metabolic issues versus hyperemesis gravidarum Narrative Course Abdomen is fairly benign and not suspecting an acute intra-abdominal process. Symptoms are indicative of gastroenteritis. Ultrasound of the shows 12 week IUP with good heart tones. Lab work did not indicate significant metabolic issues. Physician Communication Physician Communication Case is signed out to Dr. Magaña pending UA. Diagnosis Primary Impression: Gastroenteritis Condition: Stable Sumi Turner MD Mar 11, 2017 15:11
[2017-03-11] MEDS ORDERED: METOCLOPRAMIDE HCL 10 MG/2 ML VIAL IV PUSH ONE (15:15)
[2017-03-11] MEDS ORDERED: SODIUM CHLOR 0.9% 1000 ML INJ 1,000 ML IV ONE (15:15)
--- NOTE | 2017-03-11 16:13 | RADRPT ---
EXAM DATE/TIME: 03/11/2017 15:31 [place] COMPARISON: No previous studies available for comparison. INDICATIONS : Abdominal pain. LAB(S): Beta-hC MEDICAL HISTORY : Diverticulitis. . SURGICAL HISTORY : Tonsillectomy. ENCOUNTER: Initial ACUITY: 1 day PAIN SCORE: 6/10 LOCATION: Bilateral pelvis MEASUREMENTS: UTERUS: 13.7 x 9.1 x 7.3 cm ENDOMETRIAL STRIPE: >20 mm RIGHT OVARY: 3.6 x 2.9 x 2.5 cm LEFT OVARY: 4.5 x 3.2 x 2.5 cm FREE FLUID: No CROWN RUMP LENGTH: 5.7 cm = 12 WKS 2 DAYS FHR: 171 BPM FINDINGS: UTERUS: A 12 week intrauterine gestation is present with cardiac activity. RIGHT OVARY: There are a couple of tiny simple appearing right ovarian cysts, each measuring about 2 cm. LEFT OVARY: Ovary contains no mass or significant cystic lesion. MISCELLANEOUS: No free fluid. CONCLUSION: No suspicious findings Silvino Balbuena MD on March 11, 2017 at 16:09 Board Certified Radiologist. This report was verified electronically.
[2017-03-11 16:30] VITALS: BP 130/71; PULSE 88; RESP 20; O2SAT 98
[2017-03-11 18:01] LABS: BACTERIA, URINE MANY /hpf; BLOOD, URINE SMALL (NEG); COMMENT (UR) CULTURE INDICATED; CULTURE IF INDICATED CULTURE INDICATED; GLUCOSE,URINE NEG (NEG); KETONE, URINE 150 mg/dL (NEG); MUCUS URINE MOD /lpf (OCC); NITRITE,URINE NEG (NEG); SQUAMOUS EPITHELIAL CELL URINE 43 /hpf (0-5); URINE COLOR YELLOW (YELLW/STRAW)
[2017-03-11] MEDS ORDERED: NITROFURANTOIN MONOHYD MACROCR 100 MG CAP PO ONE (19:00)
[2017-03-11] MEDS ORDERED: MACR100C2 PO (19:07)
--- NOTE | 2017-03-11 19:07 | PD ---
Physical Exam Narrative Received sign out from previous team to follow up UA results. 26yo F who is 12 weeks here with nausea, vomiting and diarrhea. Denies any vaginal bleeding. Labs reviewed, leukocytosis of 12.7. BMP unremarkable. [facility] [id number]. US pelvis showed 12 week intrauterine gestation with cardiac activity. Pt reevaluated at bedside after reglan and NS IVF. Said she feels better and not nauseous anymore. Denies any abdominal pain. UA showed large leukocyte, WBC 99. Pt does not want IV antibiotics and given macrobid 100mg PO. Tolerating PO now. Return precautions given. Data Data Last Documented VS Vital Signs Date Time Temp Pulse Resp B/P (MAP) Pulse Ox O2 Delivery O2 Flow Rate FiO2 03/11/17 16:30 88 20 130/71 (90) 98 Room Air 03/11/17 12:26 98.6 Orders Orders Beta Hcg (Quant/Titer) (03/11/17 12:37) Complete Blood Count With Diff (03/11/17 12:37) Comprehensive Metabolic Panel (03/11/17 12:37) Lipase (03/11/17 12:37) Urinalysis - C+S If Indicated (03/11/17 12:37) Sodium Chlor 0.9% 1000 Ml Inj (Ns 1000 M (03/11/17 15:15) Metoclopramide Inj (Reglan Inj) (03/11/17 15:15) Us Pelvis (Ques Preg/Ectopic) (03/11/17 15:06) Urine Culture (03/11/17 17:20) Nitrofurantoin Monohyd Macrocr (Macrobid (03/11/17 19:00) Labs Laboratory Tests Test 03/11/17 12:49 03/11/17 17:20 White Blood Count 12.7 TH/MM3 Red Blood Count 4.61 MIL/MM3 Hemoglobin 13.9 GM/DL Hematocrit 40.6 % Mean Corpuscular Volume 88.0 FL Mean Corpuscular Hemoglobin 30.2 PG Mean Corpuscular Hemoglobin Concent 34.3 % Red Cell Distribution Width 13.1 % Platelet Count 230 TH/MM3 Mean Platelet Volume 8.7 FL Neutrophils (%) (Auto) 89.5 % Lymphocytes (%) (Auto) 5.1 % Monocytes (%) (Auto) 4.2 % Eosinophils (%) (Auto) 0.8 % Basophils (%) (Auto) 0.4 % Neutrophils # (Auto) 11.4 TH/MM3 Lymphocytes # (Auto) 0.6 TH/MM3 Monocytes # (Auto) 0.5 TH/MM3 Eosinophils # (Auto) 0.1 TH/MM3 Basophils # (Auto) 0.1 TH/MM3 CBC Comment DIFF FINAL Differential Comment Blood Urea Nitrogen 10 MG/DL Creatinine 0.65 MG/DL Random Glucose 94 MG/DL Total Protein 7.8 GM/DL Albumin 3.7 GM/DL Calcium Level 8.9 MG/DL Alkaline Phosphatase 85 U/L Aspartate Amino Transf (AST/SGOT) 21 U/L Alanine Aminotransferase (ALT/SGPT) 38 U/L Total Bilirubin 1.0 MG/DL Sodium Level 136 MEQ/L Potassium Level 3.8 MEQ/L Chloride Level 107 MEQ/L Carbon Dioxide Level 19.0 MEQ/L Anion Gap 10 MEQ/L Estimat Glomerular Filtration Rate 111 ML/MIN Lipase 89 U/L Human Chorionic Gonadotropin, Quant 20603 MIU/ML Urine Color YELLOW Urine Turbidity CLOUDY Urine pH 6.0 Urine Specific [place] 1.020 Urine Protein 30 mg/dL Urine Glucose (UA) NEG mg/dL Urine Ketones 150 mg/dL Urine Occult Blood SMALL Urine Nitrite NEG Urine Bilirubin NEG Urine Urobilinogen LESS THAN 2.0 MG/DL Urine Leukocyte Esterase LARGE Urine RBC 20 /hpf Urine WBC 99 /hpf Urine Squamous Epithelial Cells 43 /hpf Urine Amorphous Sediment RARE Urine Bacteria MANY /hpf Urine Mucus MOD /lpf Microscopic Urinalysis Comment CULTURE INDICATED MDM Supervised Visit with MARCELO: No Diagnosis Primary Impression: Gastroenteritis Additional Impression: UTI (urinary tract infection) Qualified Codes: N39.0 - Urinary tract infection, site not specified; R31.9 - Hematuria, unspecified Patient Instructions: General Instructions Departure Forms: Tests/Procedures Additional Instruction: Please follow up with your OBGYN in 1-2 days. Return to the ED if you are not able to keep anything down, abdominal pain, vaginal bleeding. Med/Other Pt SpecificInfo: Prescription(s) given Scripts Nitrofurantoin Monohydrate Macrocrystals (Macrobid) 100 Mg Cap 100 MG PO BID for Infection for 5 Days, #10 CAP 0 Refills Prov: Debi Magaña DO 03/11/17 Condition: Stable Debi Magaña DO Mar 11, 2017 19:07
== END 2017-03-11 20:18 | disposition home or self-care (01) ==
LOC: NEPD 12:25
DX: O26.891 Other specified pregnancy related conditions, first trimester (principal); K52.9 Noninfective gastroenteritis and colitis, unspecified; O23.41 Unspecified infection of urinary tract in pregnancy, first trimester; B96.89 Other specified bacterial agents as the cause of diseases classified elsewhere; Z3A.12 12 weeks gestation of pregnancy; Z34.91 Encounter for supervision of normal pregnancy, unspecified, first trimester
CPT/HCPCS: 76700; 80053; 81001; 83690; 84702; 85025; 87086; 96361; 96374; 99285; J2765; J7030

== ENCOUNTER → 2017-04-30 | Outpatient (CLI) | payer OTHER ==
[~2017-04-30] MED LIST changes: -CIPR-9 PO; -DICL75TA PO; -DIPH25CA PO; -HYDR-3533 PO; -LEVS0.124 SL; -METR-1 PO; +SE-NCHW CHEW; -ZOFR8TAB PO
== END ==
LOC: HPND 14:19
PROVIDERS: ATTEND Obstetrics & Gynecology
DX: O35.2XX0 Maternal care for (suspected) hereditary disease in fetus, not applicable or unspecified (principal)
CPT/HCPCS: 76805

== ENCOUNTER 2017-05-21 11:30 | Emergency (ER) | payer OTHER ==
[2017-05-21] VITALS (8 sets, daily range): BP systolic 132; BP diastolic 76; PULSE 98–103; RESP 18; TEMP 98.2
--- NOTE | 2017-05-21 12:15 | PD ---
HPI Chief Complaint s/p fall Date Seen: May 21, 2017 Time Seen: 12:06 Travel History International Travel<30 Days: No Contact w/Intl Traveler<30Days: No Known Affected Area: No History of Present Illness HPI Pt is a 26y/o G1 @ 22.3wks. She has PNC with Dr. Scanlon. She presents today after falling on her L side around 8:15am while getting into the garage. She describes what sounds like symphysis diasthesis of with subsequent pelvic instability which led to this fall. She said that she had some spotting following but it resolved. She has not felt FM since the fall but states that the baby is not active during the day compared with the evening. Mild cramping in the pelvis. No other complications. Weeks Gestation: 22 Para: 0 : 1 History Past Medical History Medical History: Denies Significant Hx Obstetric History Obstetric History 1. current Past Surgical History Narrative Surgical tonsillectomy, ear tubes Family History Family History: Negative Social History Alcohol Use: No Tobacco Use: No Substance Abuse: No Allergies-Medications (Allergen,Severity, Reaction): Coded Allergies: tree nut (Unverified Allergy, Severe, Anaphylaxis, 03/11/17) Home Meds Active Scripts Nitrofurantoin Monohydrate Macrocrystals (Macrobid) 100 Mg Cap, 100 MG PO BID for Infection for 5 Days, #10 CAP 0 Refills Prov:Debi Magaña DO 03/11/17 Epinephrine Inj (Epipen 2-Wiliam Inj) 0.3 Mg/0.3 Ml Pfpen, 0.3 MG SQ ONCE Y for ALLERGIC REACTION, #1 PACK 0 Refills Prov:Debi Magaña DO 01/21/17 Reported Medications Vit W/ Ferrous Fumara Chew (Se-Massimo 19 29-1 mg Chew) 1 Chew, 1 TAB CHEW DAILY for Nutritional Supplement, EA 0 Refills 03/11/17 Review of Systems Except as stated in HPI: all other systems reviewed are Neg Physical Exam Vital Signs Date Time Temp Pulse Resp B/P (MAP) Pulse Ox O2 Delivery O2 Flow Rate FiO2 05/21/17 11:53 98.2 05/21/17 11:49 18 05/21/17 11:47 103 132/76 (94) Narrative General: well developed, well nourished, no acute distress HEENT: normocephalic atraumatic, extraocular movements intact, neck supple Abdomen: soft, gravid, nontender, nondistended Extremities: full range of motion Skin: normal coloration, no rashes, no suspicious skin lesions noted Neurologic: cranial nerves 2-12 grossly intact, normal muscle tone, normal gait Psychiatric: normal mood and affect, appropriate FHTs: +145 [place]: quiet Data Data Vital Signs Reviewed: Yes Orders Orders Vital Signs (Adult) .ON ADMISSION (05/21/17 11:44) ^ Labor Status (05/21/17 11:44) Heart (05/21/17 11:44) Us Ob Limited (05/21/17 ) MDM Plan 26y/o G1 @ 22.3wks with fall at 08:15am. -- toco quiet -- +FHTs -- US performed and placenta is normal without evidence of retroplacental clot Dispo: stable for d/c home with precautions; follow up as scheduled for routine PNC Diagnosis Diagnosis: Primary Impression: 22 weeks gestation of Additional Impression: Status post fall Lyle Ann MD May 21, 2017 12:15
== END 2017-05-21 12:41 | disposition home or self-care (01) ==
LOC: HOBED 11:30
DX: O9A.212 Injury, poisoning and certain other consequences of external causes complicating pregnancy, second trimester (principal); T14.90XA Injury, unspecified, initial encounter; W19.XXXA Unspecified fall, initial encounter; Z3A.22 22 weeks gestation of pregnancy
CPT/HCPCS: 76815

== ENCOUNTER 2017-08-04 15:10 | Emergency (ER) | payer OTHER ==
[2017-08-04 15:53] LABS: AUTOMATED NEUTROPHIL # 12.2 TH/MM3 (1.8-7.7); BASOPHIL % 0.3 % (0.0-2.0); EOSINOPHIL # 0.2 TH/MM3 (0-0.4); EOSINOPHIL % 1.5 % (0.0-4.0); HEMATOCRIT 33.3 % (35.0-46.0); HEMOGLOBIN 11.1 GM/DL (11.6-15.3); LYMPHOCYTE # 1.8 TH/MM3 (1.0-4.8); MEAN CELL VOLUME 84.6 FL (80.0-100.0); MEAN CORPUSCULAR HEMOGLOBIN 28.2 PG (27.0-34.0); MEAN CORPUSCULAR HGB CONC 33.3 % (32.0-36.0); MEAN PLATELET VOLUME 8.3 FL (7.0-11.0); MONO % 6.4 % (0.0-8.0); NEUT % 79.8 % (16.0-70.0); PLATELET COUNT 233 TH/MM3 (150-450); RED BLOOD COUNT 3.94 MIL/MM3 (4.00-5.30); RED CELL DISTRIBUTION WIDTH 14.3 % (11.6-17.2); WHITE BLOOD COUNT 15.2 TH/MM3 (4.0-11.0)
--- NOTE | 2017-08-04 16:08 | PD ---
HPI Travel History International Travel<30 Days: No Contact w/Intl Traveler<30Days: No Known Affected Area: No History Past Medical History Medical History: Denies Significant Hx Past Surgical History Surgical History: No Previous Surgery Family History Family History: Negative Social History Alcohol Use: No Tobacco Use: No Substance Abuse: Yes Allergies-Medications (Allergen,Severity, Reaction): Coded Allergies: tree nut (Unverified Allergy, Severe, Anaphylaxis, 05/21/17) Home Meds Active Scripts Nitrofurantoin Monohydrate Macrocrystals (Macrobid) 100 Mg Cap, 100 MG PO BID for Infection for 5 Days, #10 CAP 0 Refills Prov:Debi Magaña DO 03/11/17 Epinephrine Inj (Epipen 2-Wiliam Inj) 0.3 Mg/0.3 Ml Pfpen, 0.3 MG SQ ONCE Y for ALLERGIC REACTION, #1 PACK 0 Refills Prov:Debi Magaña DO 01/21/17 Reported Medications Vit W/ Ferrous Fumara Chew (Se-Massimo 29-1 mg Chew) 1 Chew, 1 TAB CHEW DAILY for Nutritional Supplement, EA 0 Refills 03/11/17 Review of Systems Except as stated in HPI: all other systems reviewed are Neg Data Data Vital Signs Reviewed: Yes Orders Orders Complete Blood Count With Diff (08/04/17 15:37) Basic Metabolic Panel (Bmp) (08/04/17 15:37) Vital Signs (Adult) .ON ADMISSION (08/04/17 15:59) ^ Labor Status (08/04/17 15:59) ^ Non Stress Test (08/04/17 15:59) ^ Hydration (08/04/17 15:59) Labs Laboratory Tests Test 08/04/17 15:35 White Blood Count 15.2 Red Blood Count 3.94 Hemoglobin 11.1 Hematocrit 33.3 Mean Corpuscular Volume 84.6 Mean Corpuscular Hemoglobin 28.2 Mean Corpuscular Hemoglobin Concent 33.3 Red Cell Distribution Width 14.3 Platelet Count 233 Mean Platelet Volume 8.3 Neutrophils (%) (Auto) 79.8 Lymphocytes (%) (Auto) 12.0 Monocytes (%) (Auto) 6.4 Eosinophils (%) (Auto) 1.5 Basophils (%) (Auto) 0.3 Neutrophils # (Auto) 12.2 Lymphocytes # (Auto) 1.8 Monocytes # (Auto) 1.0 Eosinophils # (Auto) 0.2 Basophils # (Auto) 0.0 CBC Comment DIFF FINAL Differential Comment MDM Plan Mary Ann Oquendo MD R1 Aug 04, 2017 16:08
[2017-08-04 16:26] LABS: BICARBONATE 21.6 MEQ/L (21.0-32.0); CALCIUM 8.5 MG/DL (8.5-10.1); CREATININE 0.45 MG/DL (0.50-1.00)
--- NOTE | 2017-08-04 19:24 | RADRPT ---
EXAM DATE/TIME: 08/04/2017 19:00 [place] COMPARISON: No previous studies available for comparison. INDICATIONS : Left lower abdominal pain. ORAL CONTRAST: No oral contrast ingested. RADIATION DOSE: 13.49 CTDIvol (mGy) MEDICAL HISTORY : Diverticulitis. SURGICAL HISTORY : None. ENCOUNTER: Initial ACUITY: 1 day PAIN SCALE: 6/10 LOCATION: Left lower quadrant abdomen TECHNIQUE: Volumetric scanning of the abdomen and pelvis was performed. Using automated exposure control and ad justment of the mA and/or kV according to patient size, radiation dose was kept as low as reasonably achievable to obtain optimal diagnostic quality images. DICOM format image data is available electro nically for review and comparison. FINDINGS: LOWER LUNGS: The visualized lower lungs are clear. LIVER: Homogeneous density without lesion. There is no dilation of the biliary tree. No calcified gallston es. SPLEEN: Normal size without lesion. PANCREAS: Within normal limits. KIDNEYS: Normal in size and shape. There is no mass, stone, or hydronephrosis. ADRENAL GLANDS: Within normal limits. VASCULAR: There is no aortic aneurysm. BOWEL/MESENTERY: The stomach, small bowel, and colon demonstrate no acute abnormality. A few scattered diverticula ar e seen of the descending and sigmoid portions of the colon without acute diverticulitis. The appendix is normal. There is no free intraperitoneal air or fluid. ABDOMINAL WALL: Within normal limits. RETROPERITONEUM: There is no lymphadenopathy. BLADDER: No wall thickening or mass. REPRODUCTIVE: Within normal limits. INGUINAL: There is no lymphadenopathy or hernia. MUSCULOSKELETAL: Within normal limits for patient age. CONCLUSION: A few scattered left-sided colon diverticula. Otherwise negative noncontrast CT of the abdomen and pe lvis. There is no diverticulitis or other acute inflammatory change. Silvino Mendoza MD on August 04, 2017 at 19:19 Board Certified Radiologist. This report was verified electronically.
--- NOTE | 2017-08-04 19:47 | PD ---
HPI Chief Complaint abdominal pain Date Seen: Aug 04, 2017 Time Seen: 19:42 Travel History International Travel<30 Days: No Contact w/Intl Traveler<30Days: No Known Affected Area: No History of Present Illness HPI pt. is 26 y/o @ 33 1/[address] clark present w/ c/o abdominal pain. pt. states has had left lower quad pain for the last day. states it is sharp in nature and has some worsening w/ movement. +FM, no lof/vb, pt. not sure if contractions. pt. states not have bm for the last few days. denies n/v , fever/chills. normal appetite and voiding w/o diff. pt. w/ h/o diverticulitis and states it feels the same. pt. have ct scan w/o contrast show no diverticulitis and normal bowel. spoke w/ dr. [facility] gen surg. Weeks Gestation: 33 Para: 0 : 1 History Past Medical History Narrative Medical pt. w/ h/o diverticulitis Obstetric History Obstetric History Past Surgical History Surgical History: No Previous Surgery Family History Family History: Negative Social History Alcohol Use: No Tobacco Use: No Substance Abuse: No Allergies-Medications (Allergen,Severity, Reaction): Coded Allergies: tree nut (Unverified Allergy, Severe, Anaphylaxis, 05/21/17) Home Meds Active Scripts Nitrofurantoin Monohydrate Macrocrystals (Macrobid) 100 Mg Cap, 100 MG PO BID for Infection for 5 Days, #10 CAP 0 Refills Prov:Debi Magaña DO 03/11/17 Epinephrine Inj (Epipen 2-Wiliam Inj) 0.3 Mg/0.3 Ml Pfpen, 0.3 MG SQ ONCE Y for ALLERGIC REACTION, #1 PACK 0 Refills Prov:Debi Magaña DO 01/21/17 Reported Medications Vit W/ Ferrous Fumara Chew (Se-Massimo 19 29-1 mg Chew) 1 Chew, 1 TAB CHEW DAILY for Nutritional Supplement, EA 0 Refills 03/11/17 Review of Systems Except as stated in HPI: all other systems reviewed are Neg Physical Exam Narrative GENERAL: Well-nourished, well-developed patient. SKIN: Warm and dry. HEAD: Normocephalic and atraumatic. EYES: No scleral icterus. No injection or drainage. ENT: No nasal drainage noted. Mucous membranes pink. Airway patent. NECK: Supple, trachea midline. No JVD. CARDIOVASCULAR: Regular rate and rhythm without murmurs, gallops, or rubs. RESPIRATORY: Breath sounds equal bilaterally. No accessory muscle use. ABDOMEN/GI: Abdomen soft, tender left lower quadrant, bowel sounds present, no rebound, no guarding Gravid Uterine Contractions: irreg FHT's: Category: 1 Reactive:+ Variability: mod EXTREMITIES: No cyanosis or edema. BACK: Nontender without obvious deformity. No CVA tenderness. NEUROLOGICAL: Awake and alert. Motor and sensory grossly within normal limits. Five out of 5 muscle strength in all muscle groups. Normal speech. Data Data Vital Signs Reviewed: Yes Orders Orders Complete Blood Count With Diff (08/04/17 15:37) Basic Metabolic Panel (Bmp) (08/04/17 15:37) Vital Signs (Adult) .ON ADMISSION (08/04/17 15:59) ^ Labor Status (08/04/17 15:59) ^ Non Stress Test (08/04/17 15:59) ^ Hydration (08/04/17 15:59) Urinalysis - C+S If Indicated (08/04/17 16:09) Ct Abd/Pel W/O Iv Contrast (08/04/17 ) Labs Laboratory Tests Test 08/04/17 15:35 White Blood Count 15.2 Red Blood Count 3.94 Hemoglobin 11.1 Hematocrit 33.3 Mean Corpuscular Volume 84.6 Mean Corpuscular Hemoglobin 28.2 Mean Corpuscular Hemoglobin Concent 33.3 Red Cell Distribution Width 14.3 Platelet Count 233 Mean Platelet Volume 8.3 Neutrophils (%) (Auto) 79.8 Lymphocytes (%) (Auto) 12.0 Monocytes (%) (Auto) 6.4 Eosinophils (%) (Auto) 1.5 Basophils (%) (Auto) 0.3 Neutrophils # (Auto) 12.2 Lymphocytes # (Auto) 1.8 Monocytes # (Auto) 1.0 Eosinophils # (Auto) 0.2 Basophils # (Auto) 0.0 CBC Comment DIFF FINAL Differential Comment Blood Urea Nitrogen 8 Creatinine 0.45 Random Glucose 76 Calcium Level 8.5 Sodium Level 138 Potassium Level 3.8 Chloride Level 106 Carbon Dioxide Level 21.6 Anion Gap 10 Estimat Glomerular Filtration Rate 170 MDM Medical Record Reviewed: Yes Plan pt. w/ most prob round ligament pain and constipation. condition d/w pt. all ? answered. pt. to be d/c to home. given precautions for return. f/u as sched. Diagnosis Diagnosis: Primary Impression: Round ligament pain Additional Impressions: Constipation 33 weeks gestation of Disposition: 01 DISCHARGE HOME Condition: Good Trevor Krishnan Jr., MD Aug 04, 2017 19:47
[2017-08-04] MEDS ORDERED: ACETAMINOPHEN 500 MG CPLT PO ONE (20:00)
[2017-08-04 20:34] LABS: BACTERIA, URINE FEW /hpf; BILIRUBIN, URINE NEG (NEG); BLOOD, URINE NEG (NEG); GLUCOSE,URINE NEG (NEG); HYALINE CAST, URINE 2 /lpf (RARE); KETONE, URINE 10 mg/dL (NEG); MUCUS URINE FEW /lpf (OCC); NITRITE,URINE NEG (NEG); PH, URINE 6.5 (5.0-8.5); SQUAMOUS EPITHELIAL CELL URINE 4 /hpf (0-5); URINE COLOR LIGHT-YELLOW (YELLW/STRAW); URINE LEUKOCYTE ESTERASE NEG (NEG)
[2017-08-04] MEDS ORDERED: TERBUTALINE INJ 1 MG/ML AMP SQ ONE (20:45)
== END 2017-08-04 21:21 | disposition home or self-care (01) ==
LOC: HOBED 15:10
DX: O26.893 Other specified pregnancy related conditions, third trimester (principal); R10.2 Pelvic and perineal pain; O99.613 Diseases of the digestive system complicating pregnancy, third trimester; K59.00 Constipation, unspecified; Z3A.33 33 weeks gestation of pregnancy
CPT/HCPCS: 59025; 74176; 80048; 81001; 85025; 96372; 99283; J3105

== ENCOUNTER 2017-08-31 11:16 | Emergency (ER) | payer OTHER ==
--- NOTE | 2017-08-31 12:22 | PD ---
HPI Chief Complaint Fall Date Seen: August 31, 2017 Travel History International Travel<30 Days: No Contact w/Intl Traveler<30Days: No Known Affected Area: No History of Present Illness HPI The patient is a very pleasant 27-year-old at 37 weeks gestation who presents to OB triage for evaluation following a fall earlier this morning. Patient states she slipped as it was raining while trying to get into her car and fell about 3 feet onto concrete. She reports she fell onto her buttocks. She reports low back pain as well as pain around her right hip about 7/10 at the moment. She denies any vaginal bleeding or spotting. Denies leakage or gush of fluid, abnormal vaginal discharge. Endorses positive movements at baseline. Denies contractions. Denies urinary complaints, fevers or chills , dyspnea, cough. She denies pain elsewhere. She states she was able to ambulate without an antalgic gait following the fall. Denies any decrease in range of motion of her hips or knees. Para: 0 : 1 History Past Medical History Narrative Medical Reportedly healthy Obstetric History Obstetric History Past Surgical History Narrative Surgical Tonsillectomy Family History Family History: Negative Social History Alcohol Use: No Tobacco Use: No Substance Abuse: No Allergies-Medications (Allergen,Severity, Reaction): Coded Allergies: tree nut (Unverified Allergy, Severe, Anaphylaxis, 05/21/17) Home Meds Active Scripts Nitrofurantoin Monohydrate Macrocrystals (Macrobid) 100 Mg Cap, 100 MG PO BID for Infection for 5 Days, #10 CAP 0 Refills Prov:Debi Magaña DO 03/11/17 Epinephrine Inj (Epipen 2-Wiliam Inj) 0.3 Mg/0.3 Ml Pfpen, 0.3 MG SQ ONCE Y for ALLERGIC REACTION, #1 PACK 0 Refills Prov:Debi Magaña DO 01/21/17 Reported Medications Vit W/ Ferrous Fumara Chew (Se-Massimo 19 29-1 mg Chew) 1 Chew, 1 TAB CHEW DAILY for Nutritional Supplement, EA 0 Refills 03/11/17 Review of Systems Except as stated in HPI: all other systems reviewed are Neg Physical Exam Narrative GENERAL: Well-nourished, well-developed patient. SKIN: Warm and dry. HEAD: Normocephalic and atraumatic. EYES: No scleral icterus. No injection or drainage. ENT: No nasal drainage noted. Mucous membranes pink. Airway patent. NECK: Supple, trachea midline. No JVD. CARDIOVASCULAR: Regular rate and rhythm without murmurs, gallops, or rubs. RESPIRATORY: Breath sounds equal bilaterally. No accessory muscle use. ABDOMEN/GI: Abdomen soft, non-tender, bowel sounds present, no rebound, no guarding Gravid to [-] weeks size GENITOURINARY (performed by female RN): External Genitalia: intact and normal in appearance Cervix: anterior Dilatation: 1-2 cm Effacement: thick Station: -2 Presentation: [-] Membranes: [-] Uterine Contractions: Irregular contractions on tocometer FHT's: Category: I Baseline: 120s Reactive: +accels Variability: Moderate Decels: None noted EXTREMITIES: No cyanosis or edema. BACK: Nontender without obvious deformity. No CVA tenderness. NEUROLOGICAL: Awake and alert. Motor and sensory grossly within normal limits. Normal speech. Data Data Vital Signs Reviewed: Yes [facility] Medical Record Reviewed: Yes Plan Very pleasant 27-year-old at 37 weeks gestation evaluated following a fall earlier today onto her buttocks. The patient was monitored on continuous EFM for four hours and noted to have a category I tracing. Contractions are irregular on tocometer. Patient's pain has improved. Cervix was checked at 1-2/ thick/-2. Labor precautions discussed with patient. Patient was instructed on signs and symptoms that would warrant a return visit to OB triage for reevaluation and encouraged to continue routine follow up with her OB provider. Diagnosis Diagnosis: Primary Impression: Fall Additional Impression: 37 weeks gestation of Disposition: 01 DISCHARGE HOME Condition: Stable Patient Instructions: Abdominal Pain in (ED), Early Labor Signs (ED) , General Instructions Guillermo Fagan MD R2 August 31, 2017 12:22
[2017-08-31] MEDS ORDERED: ACETAMINOPHEN 325 MG TAB PO ONE (12:30)
== END 2017-08-31 16:31 | disposition home or self-care (01) ==
LOC: HOBED 11:16
DX: O9A.213 Injury, poisoning and certain other consequences of external causes complicating pregnancy, third trimester (principal); O26.893 Other specified pregnancy related conditions, third trimester; M54.5 Low back pain; W01.0XXA Fall on same level from slipping, tripping and stumbling without subsequent striking against object, initial encounter; Z3A.37 37 weeks gestation of pregnancy
CPT/HCPCS: 59025

== ENCOUNTER → 2017-09-15 | Emergency (ER) | payer OTHER | END | disposition home or self-care (01) | LOC: HOBED 00:27 | DX: O26.93 Pregnancy related conditions, unspecified, third trimester (principal); Z3A.39 39 weeks gestation of pregnancy; Z53.21 Procedure and treatment not carried out due to patient leaving prior to being seen by health care provider ==